=== PATIENT | male | born 2000 | race Hispanic/Latino ===

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

== ENCOUNTER 2024-02-29 19:28 | Inpatient (IN) | payer SELFPAY ==
[~2024-02-29] VITALS: Ht 165.1 cm; Wt 62.6 kg
[~2024-02-29 19:28] MED LIST: ACET-3194 PO; AMOX-426 PO; IBUP-2070 PO; PSEU120T62 PO
--- NOTE | 2024-02-29 20:21 | EKG ---
[facility] Test Date: 2024-02-29 Test Time: 20:15:03 Pat Name: DENA BRIGGS Department: [facility] Room: 322 Gender: M Management Sme: [id number] : 2000 Requested By: ASHLEY RAGLAND Order Number: [id number] Reading MD: Duane Tee Measurements Intervals [place] Rate: 64 P: 66 SD: 144 QRS: 57 QRSD: 79 T: 31 QT: 430 QTc: 445 Interpretive Statements Sinus rhythm Borderline ST elevation, anterior leads No previous ECG available for comparison Electronically Signed On 03-02-2024 12:14:58 INFECTION PREVENTION SPECIALIST by Duane Tee Please click the below link to view image of tracing.
[2024-02-29 20:35] LABS: APPEARANCE,URINE CLEAR (CLEAR); BILIRUBIN,URINE NEGATIVE (NEGATIVE); COLOR,URINE LIGHT-YELLOW (YELLOW); GLUCOSE, URINE (UA) NEGATIVE (NEGATIVE); KETONES,URINE 20 mg/dL (NEGATIVE); LEUKOCYTE ESTERASE ,URINE NEGATIVE Leu/uL (NEGATIVE); NITRATE,URINE NEGATIVE (NEGATIVE); OCCULT BLOOD,URINE NEGATIVE (NEGATIVE); PROTEIN,URINE NEGATIVE (NEGATIVE); UROBILINOGEN,URINE 0.2 mg/dL (0.2-1.0)
[2024-02-29 20:43] LABS: AMPHET/METH SCREEN,URINE NEGATIVE (NEGATIVE); BARBITURATE SCREEN, URINE NEGATIVE (NEGATIVE); BENZODIAZEPINES SCREEN,URINE NEGATIVE (NEGATIVE); CANNABINOID SCREEN,URINE POSITIVE (NEGATIVE); COCAINE SCREEN,URINE NEGATIVE (NEGATIVE); OPIATE SCREEN,URINE NEGATIVE (NEGATIVE); PHENCYCLIDINE SCREEN,URINE NEGATIVE (NEGATIVE)
[2024-02-29 20:46] LABS: ADD UA MICROSCOPIC NO
--- NOTE | 2024-02-29 20:47 | HMCIMG ---
CHEST 1VW CLINICAL HISTORY: chest COMPARISON: 12/12/2007 TECHNIQUE: Single view of the chest was obtained. FINDINGS: Lungs are clear. The cardiac size and mediastinum are unremarkable. The bony structures are within normal limits. IMPRESSION: No acute cardiopulmonary process identified.
[2024-02-29 21:07] LABS: BASOPHILS # (AUTO) 0.03 K/uL (0.00-0.20); BASOPHILS % (AUTO) 0.2 % (0.0-5.0); IMMATURE GRANULOCYTE ABSOLUTE 0.04 K/uL (0-1); LYMPHOCYTES # (AUTO) 1.2 K/uL (1.0-4.8); LYMPHOCYTES % (AUTO) 9.4 % (21.0-51.0); MEAN CORPUSCULAR HEMOGLOBIN 29.7 pg (27.0-33.0); MEAN CORPUSCULAR HGB CONC 34.9 g/dL (32.0-36.0); MEAN CORPUSCULAR VOLUME 85.1 fL (79-99); MONOCYTES # (AUTO) 0.4 K/uL (0.1-1.0); MONOCYTES % (AUTO) 3.1 % (3.0-13.0); NEUTROPHILS # (AUTO) 11.4 K/uL (1.8-7.7); PLATELET COUNT (AUTO) 268 K/uL (130-400); RED BLOOD CELL COUNT(AUTO) 5.05 MIL/uL (4.50-6.20); RED CELL DISTRIBUTION WIDTH 12.5 % (11.0-15.5); WHITE BLOOD COUNT (AUTO) 13.1 K/uL (4.8-10.8)
--- NOTE | 2024-02-29 21:09 | ERN ---
General Chief Complaint: Hematemesis/Vomiting Blood Stated Complaint: ALCOHOL POSIONING Time Seen by MD: 19:29 Source: patient History of Present Illness Initial Comments Patient is a 25-year-old male coming in to be evaluated for nausea and vomiting. Patient states he was concerned because he has a couple of bloody vomitus to us that he got him concerned. He states that yesterday he was drinking alcohol believes that this is what causes vomiting episodes. Allergies: Coded Allergies: No Known Drug Allergies (Unverified Allergy, Unknown, 02/28/21) Home Meds Active Scripts Pseudoephedrine HCl (Sudafed 12 Hour) 120 Mg Tablet.er, 120 MG PO BID for 5 Days, #10 TAB Prov:KIMBER LAND 02/28/21 Amoxicillin/Potassium Clav (Augmentin 500-125 Tablet) 1 Each Tablet, 1 EACH PO TID for 10 Days, #30 TAB Prov:KIMBER LAND 02/28/21 Ibuprofen (Ibuprofen) 600 Mg Tablet, 600 MG PO Q6H PRN for PAIN, #15 TAB Prov:KIMBER LAND 02/28/21 Acetaminophen (Acetaminophen) 650 Mg Tablet.er, 650 MG PO Q4HPRN for 5 Days, #15 TAB Prov:KIMBER LAND 02/28/21 Past Medical History Past Medical History: Asthma Medical History Other: ASTHMA Past Surgical History: Unknown Social History Social History: Negative ROS Dictation CONSTITUTIONAL: No chills, no fever, no weakness, no diaphoresis, no malaise. HEAD/FACE: No signs of trauma. EENT: No eye pain, no blurred vision, no tearing, no double vision, no ear pain, no ear discharge, no nose pain, no nasal congestion, no throat pain, no throat swelling, no mouth pain. RESPIRATORY: No cough, no orthopnea, no SOB, no stridor, no wheezing. CARDIOVASCULAR: No chest pain, no edema, no palpitations, no syncope. GASTROINTESTINAL/ABDOMINAL: No abdominal pain, no constipation, no diarrhea, no nausea, no vomiting. GENITOURINARY: No abnormal discharge, no dysuria, no frequent urination, no hematuria. No complaints of pain in the genitals. MUSCULOSKELETAL: No back pain, no gout, no joint pain, no joint swelling, no muscle pain, no muscle stiffness, no neck pain. INTEGUMENTARY: No change in color, no change in hair/nails, no dryness, no lesion, no lumps, no rash. NEUROLOGICAL/PSYCH: No anxiety, not depressed, no emotional problem, no headache, no numbness, no pre-existing deficit, no history of seizures, no tremors, no weakness. HEMATOLOGIC/LYMPHATIC: Not anemic, no history of blood clots, no apparent bleeding, no bruising, glands not swollen. All Systems Negative, Except as Noted. Physical Exam Physical Exam Dictation VITAL SIGNS: Reviewed. GENERAL APPEARANCE: Alert, oriented x3, no acute distress, obese. HEAD AND FACE: Non-traumatic. EYES: PERRL, pink conjunctivas, eyelid no trauma, anterior chamber clear. EARS: Pinnas intact and no signs of trauma or erythema. Ear canals clear and no discharge. TMs no erythema. NOSE: No discharge, no bleeding. OROPHARYNX: Mouth normal, teeth no caries, tongue pink. Pharynx clear, no erythema. Tonsils no exudates, no abscesses noted. Mucous membrane moist. NECK: Supple, non-tender, no thyromegaly, no masses, no JVD, no bruits. BREAST: Deferred. CHEST: No tenderness, no crepitus, no paradoxical movement, no retractions. LUNGS: Clear, well-ventilated, symmetric, no rales, no wheezing, no rhonchi, no stridor, good breath sounds bilaterally. HEART: Regular rate, regular rhythm, no murmur, no gallops. VASCULAR: No peripheral edema. ABDOMEN: Soft, positive bowel sounds, nondistended, no guarding, nontender, no rebound, no masses no hepatomegaly, no splenomegaly, no Olivo's sign, no hernias. RECTAL: Deferred. GENITAL: Deferred. NEUROLOGICAL: Normal speech, gross motor function intact, gross sensory function intact. MUSCULOSKELETAL: Neck nontender, full range of motion, back nontender, full range of motion. EXTREMITIES: Nontender, full range of motion. SKIN: Color pink, dry, no turgor, no rash, no lacerations, no abrasions, no contusions. LYMPHATICS: Deferred. Results Laboratory and Microbiology Lab and Micro Result Laboratory Tests Test 02/29/24 20:21 1/1/25 20:47 Urine Color LIGHT-YELLOW (YELLOW) Urine Appearance CLEAR (CLEAR) Urine pH 8.0 (5.0-8.0) Urine Specific [place] 1.014 (1.001-1.031) Urine Protein NEGATIVE mg/dL (NEGATIVE) Urine Glucose (UA) NEGATIVE mg/dL (NEGATIVE) Urine Ketones 20 mg/dL (NEGATIVE) H Urine Occult Blood NEGATIVE (NEGATIVE) Urine Nitrate NEGATIVE (NEGATIVE) Urine Bilirubin NEGATIVE mg/dL (NEGATIVE) Urine Urobilinogen 0.2 mg/dL (0.2-1.0) Urine Leukocyte Esterase NEGATIVE Mike/uL Urine Opiates Screen NEGATIVE (NEGATIVE) Urine Barbiturates Screen NEGATIVE (NEGATIVE) Urine Phencyclidine Screen NEGATIVE (NEGATIVE) Urine Amphetamines Screen NEGATIVE (NEGATIVE) Urine Benzodiazepines Screen NEGATIVE (NEGATIVE) Urine Cocaine Screen NEGATIVE (NEGATIVE) Urine Marijuana (THC) Screen POSITIVE (NEGATIVE) H White Blood Count 13.1 K/uL (4.8-10.8) H Red Blood Count 5.05 MIL/uL (4.50-6.20) Hemoglobin 15.0 g/dL (14.0-18.0) Hematocrit 43.0 % (42-54) Mean Corpuscular Volume 85.1 fL (79-99) Mean Corpuscular Hemoglobin 29.7 pg (27.0-33.0) Mean Corpuscular Hemoglobin Concent 34.9 g/dL (32.0-36.0) Red Cell Distribution Width 12.5 % (11.0-15.5) Platelet Count 268 K/uL (130-400) Mean Platelet Volume 9.0 fL (7.5-10.5) Immature Granulocyte % (Auto) 0.3 % (0-1) Neutrophils (%) (Auto) 87.0 % (40.0-77.0) H Lymphocytes (%) (Auto) 9.4 % (21.0-51.0) L Monocytes (%) (Auto) 3.1 % (3.0-13.0) Eosinophils (%) (Auto) 0.0 % (0.0-8.0) Basophils (%) (Auto) 0.2 % (0.0-5.0) Neutrophils # (Auto) 11.4 K/uL (1.8-7.7) H Lymphocytes # (Auto) 1.2 K/uL (1.0-4.8) Monocytes # (Auto) 0.4 K/uL (0.1-1.0) Eosinophils # (Auto) 0.00 K/uL (0.00-0.70) Basophils # (Auto) 0.03 K/uL (0.00-0.20) Absolute Immature Granulocyte (auto 0.04 K/uL (0-1) Nucleated Red Blood Cells 0.0 % (0.0-0.19) White Cell Morphology Comment See comments Prothrombin Time 11.1 SEC (9.6-11.6) Prothromb Time International Ratio 0.99 (0.85-1.15) Activated Partial Thromboplast Time 28.3 SEC (26.3-35.5) Sodium Level 139 mmol/L (136-145) Potassium Level 5.0 mmol/L (3.5-5.1) Chloride Level 98 mmol/L (101-111) L Carbon Dioxide Level 30 mmol/L (21-32) Blood Urea Nitrogen 15 mg/dL (7-18) Creatinine 1.1 mg/dL (0.5-1.3) Glomerular Filtration Rate Calc 97 mL/min (>90) Random Glucose 101 mg/dL (70-105) Total Calcium 9.3 mg/dL (8.5-10.1) Magnesium Level 1.60 mg/dL (1.80-2.40) L Total Creatine Kinase 1087 U/L (21-232) *H Troponin I High Sensitivity 6 ng/L (4-75) B-Type Natriuretic Peptide < 5 pg/mL (0-100) Labs Reviewed?: Yes EKG/XRAY/US/CT/MRI EKG Comment 02/29/2024 time 8:15 p.m. Ventricular rate [address] wave elevation or depression IN 144 X-RAY Comment [address] [place] [id number] IMAGING REPORT Signed PATIENT: DENA BRIGGS MR#: [id number] : 2000 SEX: M AGE: 24 LOCATION: [facility] ORDER 46 STATUS: REG ER REPORT#: [id number] SERVICE 44 REASON: chest ORDERING PHYSICIAN: ASHLEY RAGLAND MD PROCEDURE: CXR1VW - CHEST 1VW CHEST 1VW CLINICAL HISTORY: chest COMPARISON: 12/12/2007 TECHNIQUE: Single view of the chest was obtained. FINDINGS: Lungs are clear. The cardiac size and mediastinum are unremarkable. The bony structures are within normal limits. IMPRESSION: No acute cardiopulmonary process identified. DICTATED BY: HIREN YIN DO DATE: 02/29/242043 ELECTRONICALLY SIGNED BY: HIREN YIN DO DATE: 02/29/242046 MDM MDM: DIFFERENTIAL DIAGNOSIS: CANNABIS HYPEREMESIS SYNDROME, ELEVATED CK PATIENT IS A 24-YEAR-OLD MALE COMING IN TO BE EVALUATED FOR NAUSEA AND VOMITING PER PATIENT HE HAS BEEN DRINKING ALCOHOL ALL DAY. HE STATES THAT HE HAD A HEMATEMESIS EVENT DECIDED COME IN TO BE EVALUATED. ON LABORATORY WORKUP ELEVATED CKS DISTAL FOR RHABDOMYOLYSIS AND POSITIVE FOR CANNABIS. PATIENT WILL BE ADMITTED UNDER THE CARE OF HOSPITALIST GROUP FOR ONGOING MANAGEMENT. ED Course Orders Procedure Category Date Status Time Cbc With Differential LAB 02/29/24 Complete 19:45 Prothrombin Time With LAB 02/29/24 Complete INR 19:45 B-Type Natriuretic LAB 02/29/24 Complete Peptide 19:45 Chest 1vw RAD 02/29/24 Resulted 19:45 12 Lead Ekg Tracing- EKG 02/29/24 Complete Technical 19:45 Lactated Ringers PHA 02/29/24 Complete 1000ml (Lactated 20:00 Ondansetron 4mg Inj PHA 02/29/24 Complete (Zofran 4mg Inj) 20:00 Magnesium LAB 02/29/24 Complete 19:45 Creatine Kinase, Total LAB 02/29/24 Complete 19:45 Troponin I High LAB 02/29/24 Complete Sensitivity 19:45 Urinalysis Profile LAB 02/29/24 Complete 19:45 Partial LAB 02/29/24 Complete Thromboplastin Time 19:45 Basic Metabolic Panel LAB 02/29/24 Complete 19:45 Pantoprazole 40mg Inj PHA 02/29/24 Complete (Protonix 40mg Inj 20:00 Drug Screen Urine LAB 02/29/24 Complete 19:45 0.9%Nacl 1000ml (Ns PHA 02/29/24 Complete 1000ml) 22:00 Current Medications Medications (Trade) Dose Ordered Sig/Lobito Route PRN Reason Start Time Stop Time Status Last Admin Dose Admin Lactated Ringer's 1,000 ml @ 0 mls/hr ONCE ONCE IV 02/29/24 20:00 02/29/24 20:01 DC 02/29/24 21:54 Ondansetron HCl (zoFRAN 4MG INJ) 4 mg ONCE ONCE IVP 02/29/24 20:00 02/29/24 20:01 DC 02/29/24 21:54 Pantoprazole Sodium (PROTonix 40MG INJ) 40 mg ONCE ONCE IVP 02/29/24 20:00 02/29/24 20:01 DC 02/29/24 21:54 Sodium Chloride 1,000 ml @ 0 mls/hr ONCE ONCE IV 02/29/24 22:00 02/29/24 22:01 DC Vital Signs Date Time Temp Pulse Resp B/P (MAP) Pulse Ox O2 Delivery O2 Flow Rate FiO2 02/29/24 20:13 98.8 82 20 129/71 98 Room Air DX & DISP Disposition: Inpatient Decision to Admit Time: 21:56 Departure Impression: Primary Impression: Cannabis hyperemesis syndrome concurrent with and due to cannabis abuse Additional Impression: Rhabdomyolysis Condition: Stable Referrals: SELF,REFERRAL (PCP) ASHLEY RAGLAND MD Feb 29, 2024 21:09
[2024-02-29 21:17] LABS: INR 0.99 (0.85-1.15); PROTHROMBIN TIME 11.1 SEC (9.6-11.6)
[2024-02-29 21:18] LABS: CREATININE 1.1 mg/dL (0.5-1.3)
[2024-02-29 21:19] LABS: PARTIAL THROMBOPLASTIN TIME 28.3 SEC (26.3-35.5)
[2024-02-29 21:38] LABS: B-TYPE NATRIURETIC PEPTIDE < 5 pg/mL (0-100)
[2024-02-29 21:42] LABS: MAGNESIUM 1.6 mg/dL (1.80-2.40)
[2024-02-29] MEDS: ondanSETRON 4MG INJ IVP ONE (21:54)
[2024-02-29] MEDS: LACTATED RINGERS 1000ML 1,000 ML IV ONE (21:54)
[2024-02-29] MEDS: PANTOPrazole 40 MG/VIAL IVP ONE (21:54)
--- NOTE | 2024-02-29 22:13 | HP ---
History of Present Illness Reason for Visit: nv History of Present Illness Mr. Dyson is a 24-year-old male that was seen and examined today on 02/29/2024. Patient is a good historian and personal health. Patient reports that he came to the emergency department with a chief complaint of nausea and vomiting. Onset was 1:00 a.m.. Location is to abdomen. Duration is on and off. Character is described as watery. Symptoms are aggravated with eating and drinking. There was no alleviating factors. Patient denies any associated chest pain or shortness and breath. Patient states he drank a large amount of alcohol last night for Suzanne. Today in the emergency department WBCs 13.1, magnesium 1.6, CK 1087, urinalysis unremarkable, urine toxicology positive for marijuana. Patient admits to daily marijuana use. Emergency room physician recommended patient be admitted with a diagnosis of intractable nausea or vomiting. Past Medical History ADDITIONAL PAST MEDICAL HISTORY: [Asthma] SOCIAL HISTORY: [Negative for smoking, alcohol use. Patient admits to daily marijuana use. Patient is independent of all his ADLs. Patient is employed ful l-time in construction. Patient denies difficulty pain is bills. Patient has poor access to health care due to lack of health insurance. Patient lives with his grandmother Ai Miller] SURGICAL HISTORY: [Denies] Review of Systems General: No Fever, No Chills, No Night Sweats, No Fatigue, No Malaise, No Appetite, No Other HEENT: No Head Aches, No Visual Changes, No Eye Pain, No Ear Pain, No Dysphasia, No Sinus Congestion, No Post Nasal Drip, No Sore Throat, No Other Pulmonary: No Dyspnea, No Cough, No Pleuritic Chest Pain, No Other Cardiovascular: No: Chest Pain, Palpitations, Orthopnea, Paroxysmal Noc. Dyspnea, Edema, Lt Headedness, Other Gastrointestinal: Nausea, Vomiting; No: Abdominal Pain, Diarrhea, Constipation, Melena, Hematochezia, Other Genitourinary: No Dysuria, No Frequency, No Incontinence, No Hematuria, No Retention, No Other Musculoskeletal: No: other, neck pain, shoulder pain, arm pain, back pain, hand pain, leg pain, foot pain Skin: No Urticaria, No Rash, No Other Neurological: No: Weakness, Numbness, Incoordination, Change in speech, Confusion, Seizures, Other Allergies: Coded Allergies: No Known Drug Allergies (Unverified Allergy, Unknown, 02/28/21) Scheduled Acetaminophen (Acetaminophen), 650 MG PO Q4HPRN Amoxicillin/Potassium Clav (Augmentin 500-125 Tablet), 1 EACH PO TID Pseudoephedrine HCl (Sudafed 12 Hour), 120 MG PO BID Scheduled PRN Ibuprofen (Ibuprofen), 600 MG PO Q6H PRN for PAIN Exam Vital Signs Vital Signs Date Time Temp Pulse Resp B/P (MAP) Pulse Ox O2 Delivery O2 Flow Rate FiO2 02/29/24 20:13 98.8 82 20 129/71 98 Room Air General Appearance: Alert, Oriented X3, Cooperative, No acute distress HEENT: Atraumatic, PERRLA, EOMI, Mucous membr. moist/pink Respiratory: Clear to auscultation, Normal air movement, NL respiratory effort Cardiovascular: Regular rate, Regular rhythm, Normal S1, Normal S2 Abdominal: Normal bowel sounds, Soft, No tenderness Extremities: No edema Skin: No significant lesion Neuro: Normal speech, Strength at 5/5 X4 ext, Sensation intact, Cranial nerves 3-12 NL Psych/Mental Status: Thoughts/Content NL Assessment/Plan ASSESSMENT: [ Rhabdomyolysis, POA Intractable nausea, vomiting, POA Hypomagnesemia, POA Leukocytosis, POA Cannabinoid hyperemesis syndrome, POA Asthma] PLAN: [ Admit patient to medical floor as inpatient status. Repeat CK in a.m.. Lactated Ringer's at 100 mL/HR. As-needed Zofran. GI rest, keep patient NPO. Consider advancing diet tomorrow at lunch clear or full liquid if patient is no longer nauseated. Replace magnesium per hospital protocol. Check blood culture, follow up with the results. Check lactic acid, follow up with the results. Check procalcitonin, follow up with the results. Consider starting empiric antibiotic treatment if patient develops any focal signs of infection such as fever, chills. Fluid resuscitation 30 mL/kg if lactic acid elevated. Consult patient on marijuana use cessation. As-needed albuterol nebulized every 4 hours for asthma exacerbation. GI prophylaxis, famotidine 20 mg IV once daily. DVT prophylaxis, Lovenox 40 mg subcutaneously once daily. ADVANCED CARE PLANNING 1. Which of the following were discussed? Hospice Care - Yes Therapeutic options - Yes- Advance Directives - Yes- patient states he does not have any advance directives in place at this time, however his grandmother can make decisions for him if he becomes unable. Other discussions - patient wishes to remain a full code at this time 2. Discussed with who? Patient 3. Voluntary nature of this service was explained to the patient? Yes 4. Amount of time spent - ___ 16 minutes ____ 5. Reviewed by Physician? (if this service was performed by NPP) Yes This document was generated in part using voice recognition software, occasional wrong word or sound alike substitutions may have occurred due to the inherent limitations of voice recognition software. Read the chart carefully and recognize using context, where the substitutions have occurred. Although every effort was made to edit the content, magistrate judge and typing errors may occur ATTESTATION BY PHYSICIAN I have seen and examined the patient. I reviewed the documentation, medical decision making, and treatment plan as noted by the mid-level provider above. I agree with the findings and plan of care. JUAN PERALES [facility] Feb 29, 2024 22:13
[2024-02-29] MEDS ORDERED: PoTASSium chloRIDE 20MEQ/100ML 100 ML IV PRN (22:30)
--- NOTE | 2024-02-29 22:31 | NUR ---
lactic 2.8 reported to Elio Vazquez NP. LR 1000 ml started at 2158. NS 1000 liter pending completion of LR to equal 2000 mls. 30 ml per kg bolus equals 1890mls.
[2024-02-29] MEDS: 0.9%NACL 1000ML 1,000 ML IV ONE (23:00)
[2024-02-29] MEDS: MAGNESIUM 2GM PREMIX 50ML 50 ML IV PRN (23:29)
[2024-03-01] VITALS (9 sets, daily range): BP systolic 112–122; BP diastolic 64–88; PULSE 53–88; RESP 16–20; TEMP 98.2–98.7; O2SAT 98–99
[2024-03-01] MEDS: LACTATED RINGERS 1000ML 1,000 ML IV SCH (00:23)
--- NOTE | 2024-03-01 01:45 | NUR ---
ASSUMED PT CARE
[2024-03-01 02:06] LABS: BASOPHILS # (AUTO) 0.03 K/uL (0.00-0.20); BASOPHILS % (AUTO) 0.3 % (0.0-5.0); EOSINOPHILS # (AUTO) 0.02 K/uL (0.00-0.70); EOSINOPHILS % (AUTO) 0.2 % (0.0-8.0); HEMATOCRIT 36.7 % (42-54); IMMATURE GRANULOCYTE ABSOLUTE 0.03 K/uL (0-1); LYMPHOCYTES # (AUTO) 2.3 K/uL (1.0-4.8); MEAN CORPUSCULAR HEMOGLOBIN 30.1 pg (27.0-33.0); MEAN CORPUSCULAR HGB CONC 35.1 g/dL (32.0-36.0); MEAN CORPUSCULAR VOLUME 85.5 fL (79-99); MONOCYTES # (AUTO) 0.9 K/uL (0.1-1.0); MONOCYTES % (AUTO) 8.1 % (3.0-13.0); NEUTROPHILS # (AUTO) 7.6 K/uL (1.8-7.7); NEUTROPHILS % (AUTO) 70.1 % (40.0-77.0); PLATELET COUNT (AUTO) 236 K/uL (130-400); RED BLOOD CELL COUNT(AUTO) 4.29 MIL/uL (4.50-6.20); RED CELL DISTRIBUTION WIDTH 12.6 % (11.0-15.5); WHITE BLOOD COUNT (AUTO) 10.9 K/uL (4.8-10.8)
--- NOTE | 2024-03-01 02:08 | NUR ---
PATIENT NOT ON ANY HOME MEDS
[2024-03-01 02:27] LABS: MAGNESIUM 2.5 mg/dL (1.80-2.40); PHOSPHORUS 4.7 mg/dL (2.5-4.9); POTASSIUM 4.2 mmol/L (3.5-5.1)
[2024-03-01] MEDS: ALBUTEROL 0.083% 2.5 MG/3 ML INH IH PRN (07:38)
--- NOTE | 2024-03-01 09:15 | NUR ---
SPOKE WITH PATIENT CONCERNING DIAGNOSES AND TREATMENT PLANS, ADVISED OF NEED FOR IV FLUIDS, AND IS AGREEABLE TO HAVING THEM ORDERED. IV SITE IS PATENT WITH NO S/S INFILTRATION NOTED.
--- NOTE | 2024-03-01 10:08 | NUR ---
DCP Pt awake , alert, oriented X3 lives with josh Cloud who is disabled has 4 steps to enter house with a ramp available. 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 Pt does not have a PCP, provided pt with critical access hospital. Anticipates discharge for home. Addendum: 03/01/24 at 1012 by JOVANI EDWARDS RN CM Amended: Links added.
--- NOTE | 2024-03-01 13:25 | PN ---
[facility] PROGRESS NOTE Date of Service: Mar 01, 2024 Time of Service: 13:24 SUBJECTIVE: Patient is seen and examined, awake, following commands, getting IV fluids during my visit. BP 112/80, afebrile, saturating normal on room air, WBC trending down at 10.9, total CK 1000. Patient with possible history positive for marijuana, counseling provided. We will keep the patient on LR at 100 mL/hours, continue to follow total CK in a.m.. REVIEW OF SYSTEMS CONSTITUTIONAL: Denies fevers, chills, or night sweats. No unintentional weight loss reported. NEUROLOGICAL: Denies headache, amaurosis fugax, motor weakness, sensory deficit, vertigo/spinning sensation, gait abnormalities, or tremors. ENT: No hearing loss, otalgia, otorrhea, rhinitis, rhinorrhea, hoarseness, or sore throat. CARDIOVASCULAR: Denies any exertional angina, dyspnea on exertion, orthopnea, paroxysmal nocturnal dyspnea, palpitations, life-threatening arrhythmias, claudication. PULMONARY: Denies any shortness of breath, cough, phlegm/sputum, hemoptysis, pleuritic chest pain. SLEEP: Denies morning headaches, daytime somnolence or napping. Denies difficulty falling asleep, staying asleep, waking from sleep. Denies knowledge of snoring. GASTROINTESTINAL: Denies any type of dysphagia to either liquids or solids. Denies nausea, vomiting, pyrosis, early satiety, abdominal pain, diarrhea, constipation, or changes in stool consistency or caliber. Denies coffee-ground emesis, hematemesis, hematochezia, or melanotic stools. GENITOURINARY: Denies frequency, urgency, nocturia, hematuria or incontinence (Storage/Irritative symptoms.) Low urinary stream, straining to void, urinary intermittency or hesitancy, splitting of the voiding stream, terminal dribbling. ENDOCRINOLOGIC: Denies polyuria, polydipsia, polyphagia or heat/cold intolerances. HEMATOLOGIC: Denies thrombophilia/previous clots, or coagulopathy/bleeding d isorders. ONCOLOGIC: Denies personal history of malignancy. DERMATOLOGIC: Denies rashes or pruritus. PSYCHIATRIC: Denies any suicidal or homicidal ideation. Denies hallucinations. PHYSICAL EXAM GENERAL APPEARANCE: The patient is awake, alert, and oriented, in no acute cardiopulmonary distress. NEUROLOGICAL: Cranial nerves II-XII grossly intact. Motor is 5/5 in bilateral upper and lower extremities proximal to distal. No sensory deficits. HEENT: Face is symmetric. Pupils are equal and reactive. Extraocular movements are intact. NECK: Supple. No JVD. No thyromegaly. No submental, submandibular, pre- /postauricular, occipital or supraclavicular lymphadenopathy. CHEST: Normal chest expansion. No Telemetry. LUNGS: Absence of any rales, rhonchi or any wheezing. CARDIOVASCULAR: Regular. S1 and S2 normal. No appreciable rubs, murmurs or gallops. ABDOMEN: Soft, nontender, and nondistended. There is no rebound, voluntary guarding, or rigidity. : Deferred. No Smith. EXTREMITIES: Non-edematous and not cyanotic. No clubbing. Good capillary refill. SKIN: No skin breakdown. Vital Signs (last 8hr) Date Time Temp Pulse Resp B/P (MAP) Pulse Ox O2 Delivery O2 Flow Rate FiO2 03/01/24 12:00 98.8 81 19 112/80 99 Room Air 03/01/24 08:00 98.4 76 20 118/76 98 Room Air 03/01/24 07:31 61 20 03/01/24 07:26 61 18 N/A Room Air 21 03/01/24 06:12 98.4 53 18 111/49 98 Room Air* 0 21 LABS: Laboratory: Test 03/01/24 01:56 02/29/24 22:20 02/29/24 20:47 02/29/24 20:21 Range/Units White Blood Count 10.9 H 4.8-10.8 K/uL Red Blood Count 4.29 L 4.50-6.20 MIL/uL Hemoglobin 12.9 L 14.0-18.0 g/dL Hematocrit 36.7 L 42-54 % Mean Corpuscular Volume 85.5 79-99 fL Mean Corpuscular Hemoglobin 30.1 27.0-33.0 pg Mean Corpuscular Hemoglobin Concent 35.1 32.0-36.0 g/dL Red Cell Distribution Width 12.6 11.0-15.5 % Platelet Count 236 130-400 K/uL Mean Platelet Volume 9.2 7.5-10.5 fL Immature Granulocyte % (Auto) 0.3 0-1 % Neutrophils (%) (Auto) 70.1 40.0-77.0 % Lymphocytes (%) (Auto) 21.0 21.0-51.0 % Monocytes (%) (Auto) 8.1 3.0-13.0 % Eosinophils (%) (Auto) 0.2 0.0-8.0 % Basophils (%) (Auto) 0.3 0.0-5.0 % Neutrophils # (Auto) 7.6 1.8-7.7 K/uL Lymphocytes # (Auto) 2.3 1.0-4.8 K/uL Monocytes # (Auto) 0.9 0.1-1.0 K/uL Eosinophils # (Auto) 0.02 0.00-0.70 K/uL Basophils # (Auto) 0.03 0.00-0.20 K/uL Absolute Immature Granulocyte (auto 0.03 0-1 K/uL Nucleated Red Blood Cells 0.0 0.0-0.19 % Sodium Level 141 136-145 mmol/L Potassium Level 4.2 3.5-5.1 mmol/L Chloride Level 104 101-111 mmol/L Carbon Dioxide Level 30 21-32 mmol/L Blood Urea Nitrogen 14 7-18 mg/dL Creatinine 1.0 0.5-1.3 mg/dL Glomerular Filtration Rate Calc 109 >90 mL/min Random Glucose 89 70-105 mg/dL Lactic Acid Level 1.3 0.8-2.5 mmol/L Total Calcium 8.4 L 8.5-10.1 mg/dL Phosphorus Level 4.7 2.5-4.9 mg/dL Magnesium Level 2.50 H 1.80-2.40 mg/dL Total Creatine Kinase 1000 *H 21-232 U/L Procalcitonin < 0.05 L 0.05-0.5 ng/mL White Cell Morphology Comment See comments Prothrombin Time 11.1 9.6-11.6 SEC Prothromb Time International Ratio 0.99 0.85-1.15 Activated Partial Thromboplast Time 28.3 26.3-35.5 SEC Troponin I High Sensitivity 6 4-75 ng/L B-Type Natriuretic Peptide < 5 0-100 pg/mL Urine Color LIGHT-YELLOW YELLOW Urine Appearance CLEAR CLEAR Urine pH 8.0 5.0-8.0 Urine Specific [place] 1.014 1.001-1.031 Urine Protein NEGATIVE NEGATIVE mg/dL Urine Glucose (UA) NEGATIVE NEGATIVE mg/dL Urine Ketones 20 H NEGATIVE mg/dL Urine Occult Blood NEGATIVE NEGATIVE Urine Nitrate NEGATIVE NEGATIVE Urine Bilirubin NEGATIVE NEGATIVE mg/dL Urine Urobilinogen 0.2 0.2-1.0 mg/dL Urine Leukocyte Esterase NEGATIVE NEGATIVE Mike/uL Urine Opiates Screen NEGATIVE NEGATIVE Urine Barbiturates Screen NEGATIVE NEGATIVE Urine Phencyclidine Screen NEGATIVE NEGATIVE Urine Amphetamines Screen NEGATIVE NEGATIVE Urine Benzodiazepines Screen NEGATIVE NEGATIVE Urine Cocaine Screen NEGATIVE NEGATIVE Urine Marijuana (THC) Screen POSITIVE H NEGATIVE Current Medications Medications (Trade) Dose Ordered Sig/Lobito Route PRN Reason Start Time Stop Time Status Last Admin Dose Admin Albuterol Sulfate (Proventil 0.083% 2.5mg/3ml) 2.5 mg [id number] PRN IH shortness of breath 02/29/24 23:30 03/30/24 23:29 03/01/24 07:38 2.5 MG Lactated Ringer's 1,000 ml @ 100 mls/hr Q10H IV 02/29/24 22:30 03/30/24 22:29 03/01/24 00:23 100 MLS/HR Magnesium Sulfate 50 ml @ 0 mls/hr PROTOCOL PRN IV h 02/29/24 22:30 03/30/24 22:29 02/29/24 23:29 100 MLS/HR Potassium Chloride 100 ml @ 50 mls/hr AD PRN IV POTASSIUM PROTOCOL 02/29/24 22:30 03/30/24 22:29 DIAGNOSTICS / RADIOLOGY: [ ] ASSESSMENT: Rhabdomyolysis, POA Intractable nausea, vomiting, POA Hypomagnesemia, POA Leukocytosis, POA Cannabinoid hyperemesis syndrome, POA Asthma PLAN: Admit patient to medical floor as inpatient status. Repeat CK in a.m.. Lactated Ringer's at 100 mL/HR. As-needed Zofran. Advanced diet as tolerated Replace magnesium per hospital protocol. Follow septic workup Consider starting empiric antibiotic treatment if patient develops any focal signs of infection such as fever, chills. Fluid resuscitation 30 mL/kg if lactic acid elevated. Consult patient on marijuana use cessation. As-needed albuterol nebulized every 4 hours for asthma exacerbation. GI prophylaxis, famotidine 20 mg IV once daily. DVT prophylaxis, Lovenox 40 mg subcutaneously once daily. PADMINI KILGORE MD Mar 01, 2024 13:25
--- NOTE | 2024-03-01 15:00 | NUR ---
PATIENT VOICES NO COMPLAINTS OF PAIN OR OTHER DISCOMFORT. PATIENT EATING, HAS CALL LIGHT WITHIN REACH. STATED WILL CONTACT STAFF IF ANY NEEDS ARISE. STAFF TO CONTINUE HOURLY ROUNDS.
--- NOTE | 2024-03-01 17:15 | NUR ---
REPORT GIVEN TO ARRON NGUYEN ON 3RD FLOOR PATIENT STABLE, IV FLUIDS INFUSING ORDERED. NO S/S INFILTRATION NOTED. VOICES NO COMPLAINTS OF PAIN, OR OTHER DISCOMFORT.
[2024-03-01] MEDS ORDERED: ZOSYN 3.375GM +NS 50ML IV SCH (18:30)
[2024-03-01] MEDS ORDERED: HYDROcodone/APAP 5/325 1 TAB TABLET PO PRN (18:30)
[2024-03-02] VITALS: BP 137/85; PULSE 64; RESP 16; TEMP 97.8
[2024-03-02 04:00] VITALS: BP 135/75; PULSE 55; RESP 17; TEMP 97.5
[2024-03-02 04:18] VITALS: PULSE 56; RESP 20
[2024-03-02 05:45] LABS: HEMATOCRIT 39.2 % (42-54); MEAN CORPUSCULAR HEMOGLOBIN 29.6 pg (27.0-33.0); MEAN CORPUSCULAR HGB CONC 33.9 g/dL (32.0-36.0); MEAN CORPUSCULAR VOLUME 87.3 fL (79-99); RED BLOOD CELL COUNT(AUTO) 4.49 MIL/uL (4.50-6.20); RED CELL DISTRIBUTION WIDTH 12.4 % (11.0-15.5); WHITE BLOOD COUNT (AUTO) 7.2 K/uL (4.8-10.8)
[2024-03-02 06:13] LABS: ALBUMIN 3.5 g/dL (3.5-5.0); BILIRUBIN,TOTAL 2.5 mg/dL (0.2-1.0); CREATININE 0.9 mg/dL (0.5-1.3); MAGNESIUM 1.7 mg/dL (1.80-2.40); TOTAL PROTEIN, SERUM 6.7 g/dL (6.0-8.3)
[2024-03-02 07:55] VITALS: BP 124/84; PULSE 65; RESP 16; TEMP 98.3
[2024-03-02 08:00] VITALS: O2SAT 98
[2024-03-02 11:52] VITALS: BP 148/59; PULSE 52; RESP 19; TEMP 98
--- NOTE | 2024-03-02 14:20 | DS ---
Discharge Summary Hospital Course Summary: Patient admitted to the hospital February 29, 2024 with the following history of the present illness: Mr. Dyson is a 24-year-old male that was seen and examined today on 02/29/2024. Patient is a good historian and personal health. Patient reports that he came to the emergency department with a chief complaint of nausea and vomiting. Onset was 1:00 a.m.. Location is to abdomen. Duration is on and off. Character is described as watery. Symptoms are aggravated with eating and drinking. There was no alleviating factors. Patient denies any associated chest pain or shortness and breath. Patient states he drank a large amount of alcohol last night for new Suzanne. Today in the emergency department WBCs 13.1, magnesium 1.6, CK 1087, urinalysis unremarkable, urine toxicology positive for marijuana. Patient admits to daily marijuana use. Emergency room physician recommended patient be admitted with a diagnosis of intractable nausea or vomiting. 03/01/24 Patient is seen and examined, awake, following commands, getting IV fluids during my visit. BP 112/80, afebrile, saturating normal on room air, WBC trending down at 10.9, total CK 1000. Patient with possible history positive for marijuana, counseling provided. We will keep the patient on LR at 100 mL/hours, continue to follow total CK in a.m.. Today patient alert oriented x3, hemodynamically stable, total CK trending down 600, patient denies dizziness, no headache, shortness chest pain, shortness shortness for breath, no nausea, vomiting, no pain, would like to be discharged home today. Cannula has been provided terms of marijuana abuse cessation. Assessment/Plan: Final diagnosis Rhabdomyolysis, POA Intractable nausea, vomiting, POA Hypomagnesemia, POA Leukocytosis, POA Cannabinoid hyperemesis syndrome, POA Asthma Discharge Instructions: The patient to follow up care physician as an outpatient and to return to the hospital condition changes. Home Medications: Active Scripts Pseudoephedrine HCl (Sudafed 12 Hour) 120 Mg Tablet.er, 120 MG PO BID for 5 Days, #10 TAB Prov:KIMBER LAND 02/28/21 Amoxicillin/Potassium Clav (Augmentin 500-125 Tablet) 1 Each Tablet, 1 EACH PO TID for 10 Days, #30 TAB Prov:KIMBER LAND 02/28/21 Ibuprofen (Ibuprofen) 600 Mg Tablet, 600 MG PO Q6H PRN for PAIN, #15 TAB Prov:KIMBER LAND 02/28/21 Acetaminophen (Acetaminophen) 650 Mg Tablet.er, 650 MG PO Q4HPRN for 5 Days, #15 TAB Prov:KIMBER LAND 02/28/21 Time spent arranging discharge: 31-60 minutes PADMINI KILGORE MD Mar 02, 2024 14:20
--- NOTE | 2024-03-02 14:29 | NUR ---
CT ON HOLD SYDNEE BARRON PT IS GETTING TRANFERRED TO P[facility]U, WILL CALL CT WHEN READY
[2024-03-02 15:32] LABS: AMYLASE 61 U/L (25-115)
--- NOTE | 2024-03-02 16:21 | HMCIMG ---
CT ABDOMEN W/O CONTRAST REASON: admitted with nausea, vomiting COMPARISON: None. FINDINGS: Lung bases are clear. There are no focal liver lesions. There are normal-appearing kidneys.. Spleen and pancreas appear unremarkable. The gallbladder appears normal as well. Bowel loops appear unremarkable. This includes normal appearance of the appendix There is no evidence of free fluid or intraperitoneal air. There are no focal fluid collections. Aorta and retroperitoneum appear normal. The anterior abdominal wall is intact. Osseous structures appear unremarkable. IMPRESSION: 1. Negative noncontrast CT abdomen. CT was performed with one or more following dose reduction techniques: automated exposure control, adjustment of the mA and kv according to patient's size, or use of a iterative reconstruction technique.
== END 2024-03-02 16:50 | disposition home or self-care (01) | DRG 378 ==
LOC: EDH 19:28 → EDHIP 19:29 → 3DH 03-01 17:20
PROVIDERS: ADMIT Internal Medicine; ATTEND Internal Medicine
DX: K92.0 Hematemesis (principal); J45.901 Unspecified asthma with (acute) exacerbation; M62.82 Rhabdomyolysis; E83.42 Hypomagnesemia; D72.829 Elevated white blood cell count, unspecified; F12.10 Cannabis abuse, uncomplicated; Z79.899 Other long term (current) drug therapy
CPT/HCPCS: 36415; 71045; 74150; 80048; 80053; 80305; 81003; 82150; 82550; 83605; 83690; 83735; 83880; 84100; 84145; 84484; 85025; 85027; 85610; 85730; 93005; 94640; 94664; G0378; J2405; J2470; J3475; J7120